=== PATIENT | female | born 1990 | race Caucasian/White ===

== ENCOUNTER 2018-07-18 08:04 | Emergency (ER) | payer OTHER ==
[~2018-07-18] VITALS: Ht 172.7 cm; Wt 90.7 kg
== END 2018-07-18 17:13 | disposition home or self-care (01) ==
LOC: ER 08:04
DX: O20.0 Threatened abortion (principal); O26.891 Other specified pregnancy related conditions, first trimester; R10.2 Pelvic and perineal pain; Z34.81 Encounter for supervision of other normal pregnancy, first trimester

== ENCOUNTER 2018-11-12 19:04 | Outpatient (CLI) | payer OTHER | END 2018-11-13 15:30 | disposition home or self-care (01) | LOC: OBS/DEL 19:04 | DX: O60.03 Preterm labor without delivery, third trimester (principal); O35.8XX0 Maternal care for other (suspected) fetal abnormality and damage, not applicable or unspecified; Z34.83 Encounter for supervision of other normal pregnancy, third trimester ==

== ENCOUNTER 2019-01-01 08:46 | Inpatient (IN) | payer OTHER ==
[~2019-01-01] VITALS: Ht 172.7 cm; Wt 100.2 kg
[2019-01-01] MEDS ORDERED: PRENATAL 19 TA1 EACH PO (09:20)
[2019-01-03] MEDS ORDERED: IBUPROFEN800 MG PO (14:45)
[2019-01-03] MEDS ORDERED: Tylenol Extra Streng PO (14:45)
== END 2019-01-03 15:01 | disposition home or self-care (01) | DRG 798 ==
LOC: LDR 08:46 → OB/GYN 08:46
PROVIDERS: ADMIT Obstetrics & Gynecology
PROC: 10E0XZZ Delivery of Products of Conception, External Approach (ICD-10-PCS; principal; 2019-01-01)
PROC: 4A033R1 Measurement of Arterial Saturation, Peripheral, Percutaneous Approach (ICD-10-PCS; 2019-01-01)
PROC: 4A1HXCZ Monitoring of Products of Conception, Cardiac Rate, External Approach (ICD-10-PCS; 2019-01-01)
PROC: 0UB70ZZ Excision of Bilateral Fallopian Tubes, Open Approach (ICD-10-PCS; 2019-01-02)
DX: O80 Encounter for full-term uncomplicated delivery (principal); Z37.0 Single live birth; Z3A.37 37 weeks gestation of pregnancy; Z30.2 Encounter for sterilization